=== PATIENT | male | born 2000 | race Caucasian/White ===

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

== ENCOUNTER 2021-09-25 04:28 | Observation (INO) ==
[2021-09-25] MEDS ORDERED: *HR* Dextrose 50 % in Water (Syg) 50 ML SYRINGE IVP ONE ×5 (04:40→06:47)
[2021-09-25] MEDS ORDERED: *HR* Dextrose 50 % in Water (Syg) 50 ML SYRINGE ONE ×3 (04:40→06:11)
[2021-09-25] MEDS ORDERED: Ondansetron 4 MG/2 ML VIAL ONE (04:51)
[2021-09-25] MEDS ORDERED: Ondansetron 4 MG/2 ML VIAL IVP ONE (04:55)
[2021-09-25 05:20] LABS: Basophils # 0.1 K/mcL (0.0-0.2); Basophils % 0.7 %; Eosinophils # 0.2 K/mcL (0.0-0.6); Hematocrit 49.7 % (37.5-50.1); Hemoglobin 17.3 g/dL (12.9-16.9); Immature Granulocytes % 0.3 % (0-4); Lymphocytes % 42.2 %; Mean Corpuscular HGB Conc 34.8 g/dL (31.6-35.5); Mean Corpuscular Hemoglobin 31.9 pg (28.0-33.3); Mean Corpuscular Volume 91.7 fL (83.0-100.0); Monocytes # 0.5 K/mcL (0.0-1.3); Platelet Count 417 K/mcL (140-400); Red Blood Count 5.42 M/mcL (4.19-5.50); Red Cell Distribution Width 11.9 % (11.5-14.5); Segmented Neutrophils % 50.8 %; White Blood Count 11.7 K/mcL (4.3-11.1)
[2021-09-25 05:52] LABS: Acetaminophen < 10 mcg/mL (10-20); BUN/Creatinine Ratio 7 (6-26); Blood Urea Nitrogen 6 mg/dL (6-20); Calcium 9.4 mg/dL (8.6-10.3); Carbon Dioxide 22 mEq/L (23-29); Chloride 109 mEq/L (98-107); Chol/HDL Ratio 3.7 (0-4.9); Cholesterol 173 mg/dL (< 200); Ethanol 254 mg/dL (Less than 10); Glucose 35 mg/dL (70-105); HDL Cholesterol 47 mg/dL (40-59); LDL Cholesterol,Calculated 78 mg/dL (< 100); Osmolality,Calculated 292 (280-300); Salicylate < 2.5 mg/dL (15.0-30.0); Sodium 144 mEq/L (136-145); Triglycerides 240 mg/dL (< 150)
[2021-09-25] MEDS ORDERED: D5% in 0.45% NACL 1,000 ML IVC SCH (06:30)
[2021-09-25 06:35] LABS: Estimated Average Glucose 249 mg/dl; Hemoglobin A1C 10.3 %
[2021-09-25] MEDS ORDERED: D5 IVC ONE (06:45)
[2021-09-25] MEDS ORDERED: [UNRECOGNIZED DRUG - OTHER] IVC ONE (06:45)
[2021-09-25] MEDS ORDERED: POTASSIUM CHLORIDE IVC ONE (06:45)
[2021-09-25] MEDS ORDERED: WATER IVC ONE (06:45)
[2021-09-25] MEDS ORDERED: DEXTROSE 50% IVC ONE (06:45)
[2021-09-25] MEDS ORDERED: Ondansetron 4 MG/2 ML VIAL IVP PRN (07:22)
[2021-09-25] MEDS ORDERED: Naloxone 0.4 MG/ML INJ IVP PRN (07:22)
[2021-09-25] MEDS ORDERED: *HR* HYDROcodone/Acet 5/325 mg TABLET PO PRN (07:22)
[2021-09-25] MEDS ORDERED: Dextrose Gel 15 GM/37.5 ML TUBE PO PRN ×2 (07:26)
[2021-09-25] MEDS ORDERED: D5% in Water 1,000 ML IVC PRN ×2 (07:26→23:26)
[2021-09-25] MEDS ORDERED: *HR* Dextrose 50 % in Water (Syg) 50 ML SYRINGE IVP PRN (07:26)
[2021-09-25] MEDS ORDERED: *HR* LORazepam 1 MG TABLET PO PRN ×3 (07:27→07:29)
[2021-09-25] MEDS ORDERED: D10% in Water 500 ML IVC SCH (07:30)
[2021-09-25] MEDS ORDERED: Octreotide 50 MCG/ML INJ IVP SCH (08:01)
[2021-09-25] MEDS ORDERED: Octreotide 50 MCG/ML INJ IVP ONE ×2 (08:44→13:30)
[2021-09-25] MEDS: Nicotine 14 MG PATCH.TD24 TD SCH (09:11)
[2021-09-25] MEDS: Thiamine (B-1) 100 MG TABLET PO SCH (09:11)
[2021-09-25 10:13] LABS: Bilirubin,Urine Negative (Negative); Blood,Urine Negative (Negative); Clarity,Urine Clear (Clear); Color,Urine Colorless (Yellow); Glucose,Urine (UA) >=1000 mg/dL (Normal); Ketones,Urine Negative (Negative); Leukocyte Esterase,Urine Negative (Negative); Mucus,Urine Few per lpf (None-Few); Nitrite,Urine Negative (Negative); PH,Urine 6.5 pH Units (5.0-8.0); Protein,Urine Negative (Neg-Trace); Specific Gravity,Urine 1.006 (1.010-1.025); Squamous Epithelial Cell,Urine Few per hpf (None-Few); Urobilinogen,Urine Normal (Normal); WBC,Urine 0-3 per hpf (0-3)
[2021-09-25] MEDS ORDERED: 0.9 % Sodium Chloride 1,000 ML ONE (10:54)
[2021-09-25 12:14] LABS: BUN/Creatinine Ratio 6 (6-26); Blood Urea Nitrogen 5 mg/dL (6-20); Calcium 8.8 mg/dL (8.6-10.3); Carbon Dioxide 26 mEq/L (23-29); Chloride 103 mEq/L (98-107); Glucose 276 mg/dL (70-105); Osmolality,Calculated 289 (280-300); Potassium 3.9 mEq/L (3.5-5.1); Sodium 136 mEq/L (136-145)
[2021-09-25] MEDS: Insulin LISPRO 300 UNITS/3 ML VIAL SUBQ SCH (23:56)
[2021-09-26] MEDS ORDERED: Insulin LISPRO 300 UNITS/3 ML VIAL SUBQ SCH (07:30)
[2021-09-26] MEDS: Nicotine 14 MG PATCH.TD24 TD SCH (08:43)
[2021-09-26] MEDS: Thiamine (B-1) 100 MG TABLET PO SCH (08:44)
[2021-09-26] MEDS: Insulin LISPRO 300 UNITS/3 ML VIAL SUBQ SCH ×4 (08:45→21:14)
[2021-09-26] MEDS ORDERED: Insulin DETEMIR 100 UNIT/ML X5UNITS SUBQ SCH ×3 (09:00→21:00)
[2021-09-26 09:22] LABS: Basophils # 0.1 K/mcL (0.0-0.2); Basophils % 0.8 %; Eosinophils # 0.3 K/mcL (0.0-0.6); Eosinophils % 3.1 %; Hematocrit 43.5 % (37.5-50.1); Immature Granulocytes % 0.3 % (0-4); Lymphocytes % 41.4 %; Mean Corpuscular HGB Conc 34.3 g/dL (31.6-35.5); Mean Corpuscular Hemoglobin 31.6 pg (28.0-33.3); Mean Corpuscular Volume 92.2 fL (83.0-100.0); Mean Platelet Volume 10.3 fL (9.4-12.4); Monocytes # 0.5 K/mcL (0.0-1.3); Monocytes % 4.9 %; Neutrophils # 4.8 K/mcL (1.6-8.9); Platelet Count 272 K/mcL (140-400); Red Blood Count 4.72 M/mcL (4.19-5.50); Red Cell Distribution Width 11.8 % (11.5-14.5); Segmented Neutrophils % 49.5 %; White Blood Count 9.7 K/mcL (4.3-11.1)
[2021-09-26 09:24] LABS: Hemoglobin 14.9 g/dL (12.9-16.9)
[2021-09-26 09:37] LABS: BUN/Creatinine Ratio 14 (6-26); Blood Urea Nitrogen 13 mg/dL (6-20); Calcium 8.8 mg/dL (8.6-10.3); Carbon Dioxide 28 mEq/L (23-29); Chloride 104 mEq/L (98-107); Glucose 233 mg/dL (70-105); Magnesium 1.9 mg/dL (1.6-2.6); Osmolality,Calculated 292 (280-300); Phosphorous 5.3 mg/dL (2.7-4.5); Sodium 137 mEq/L (136-145)
[2021-09-26 10:38] LABS: Amphetamine Screen,Urine Negative ng/mL (Cutoff=1000); Barbiturate Screen,Urine Negative ng/mL (Cutoff=200); Benzodiazepines Screen,Urine Negative ng/mL (Cutoff=200); Cannabinoid Screen,Urine Positive ng/mL (Cutoff = 50); Cocaine Screen,Urine Negative ng/mL (Cutoff= 300); Opiate Screen,Urine Negative ng/mL (Cutoff=300); Phencyclidine Screen,Urine Negative ng/mL (Cutoff=25)
[2021-09-26 23:03] VITALS: O2SAT 99
[2021-09-27 01:37] LABS: Basophils # 0.1 K/mcL (0.0-0.2); Basophils % 0.7 %; Eosinophils # 0.3 K/mcL (0.0-0.6); Eosinophils % 2.6 %; Hematocrit 42.8 % (37.5-50.1); Hemoglobin 14.6 g/dL (12.9-16.9); Immature Granulocytes % 0.3 % (0-4); Lymphocytes # 3.6 K/mcL (0.6-4.6); Lymphocytes % 31.9 %; Mean Corpuscular HGB Conc 34.1 g/dL (31.6-35.5); Mean Corpuscular Hemoglobin 31.3 pg (28.0-33.3); Mean Corpuscular Volume 91.6 fL (83.0-100.0); Mean Platelet Volume 10.1 fL (9.4-12.4); Monocytes # 0.6 K/mcL (0.0-1.3); Monocytes % 4.9 %; Neutrophils # 6.8 K/mcL (1.6-8.9); Platelet Count 264 K/mcL (140-400); Red Blood Count 4.67 M/mcL (4.19-5.50); Red Cell Distribution Width 11.7 % (11.5-14.5); Segmented Neutrophils % 59.6 %; White Blood Count 11.4 K/mcL (4.3-11.1)
[2021-09-27 01:57] LABS: BUN/Creatinine Ratio 19 (6-26); Blood Urea Nitrogen 17 mg/dL (6-20); Calcium 8.6 mg/dL (8.6-10.3); Carbon Dioxide 26 mEq/L (23-29); Chloride 105 mEq/L (98-107); Glucose 212 mg/dL (70-105); Osmolality,Calculated 292 (280-300); Potassium 3.6 mEq/L (3.5-5.1); Sodium 137 mEq/L (136-145)
[2021-09-27 07:34] VITALS: BP 135/67; TEMP 98.2
[2021-09-27] MEDS ORDERED: Insulin DETEMIR 100 UNIT/ML X5UNITS SUBQ SCH (09:00)
[2021-09-27] MEDS: Thiamine (B-1) 100 MG TABLET PO SCH (09:21)
[2021-09-27] MEDS: Nicotine 14 MG PATCH.TD24 TD SCH (09:21)
[2021-09-27 09:30] VITALS: PULSE 59
[2021-09-27] MEDS ORDERED: Insulin LISPRO 300 UNITS/3 ML VIAL SUBQ SCH ×2 (11:30→21:00)
== END 2021-09-27 10:23 ==
LOC: EMEROOARM 04:28 → 2NNU 04:28 → SUATTDRO 07:18 → 2NNU 07:45
PROVIDERS: ADMIT Internal Medicine; ATTEND Internal Medicine

== ENCOUNTER 2021-09-27 10:26 | Inpatient (IN) ==
[2021-09-27] MEDS ORDERED: *HR* LORazepam 1 MG TABLET PO PRN (11:09)
[2021-09-27] MEDS ORDERED: Mag Hydrox/Al Hydrox/Simeth 30 ML UDC PO PRN (11:09)
[2021-09-27] MEDS ORDERED: Haloperidol Lactate 5 MG/ML VIAL IM PRN (11:09)
[2021-09-27] MEDS ORDERED: hydrOXYzine pamoate 25 MG CAPSULE PO PRN (11:09)
[2021-09-27] MEDS ORDERED: *HR* LORazepam 2 MG/ML VIAL IM PRN (11:09)
[2021-09-27] MEDS ORDERED: haloperidoL 5 MG TABLET PO PRN (11:09)
[2021-09-27] MEDS ORDERED: MOM Conc 10 ML UD.LIQ PO PRN (11:09)
[2021-09-27] MEDS ORDERED: Dextrose Gel 15 GM/37.5 ML TUBE PO PRN ×2 (12:18)
[2021-09-27] MEDS: Insulin LISPRO 300 UNITS/3 ML VIAL SUBQ SCH ×2 (12:46→16:45)
[2021-09-27] MEDS: Nicotine 2 MG GUM BC PRN ×3 (12:52→20:50)
[2021-09-27] MEDS: Sulfamethoxazole/Trimeth DS 1 EACH TABLET PO SCH (20:51)
[2021-09-27] MEDS ORDERED: Insulin DETEMIR 100 UNIT/ML X5UNITS SUBQ SCH (21:00)
[2021-09-27] MEDS: Acetaminophen 325 MG TABLET PO PRN (22:37)
[2021-09-28] MEDS: Ibuprofen 800 MG TABLET PO PRN ×3 (04:11→18:45)
[2021-09-28] MEDS: Thiamine (B-1) 100 MG TABLET PO SCH (08:18)
[2021-09-28] MEDS: Sulfamethoxazole/Trimeth DS 1 EACH TABLET PO SCH ×2 (08:19→21:45)
[2021-09-28] MEDS: Folic Acid 1 MG TABLET PO SCH (08:19)
[2021-09-28] MEDS: Insulin LISPRO 300 UNITS/3 ML VIAL SUBQ SCH ×3 (08:21→16:45)
[2021-09-28] MEDS: Nicotine 2 MG GUM BC PRN ×2 (08:42→14:15)
[2021-09-28] MEDS: Insulin DETEMIR 100 UNIT/ML X5UNITS SUBQ SCH (08:43)
[2021-09-28] MEDS: traZODone 50 MG TABLET PO PRN (21:46)
[2021-09-28] MEDS: Acetaminophen 325 MG TABLET PO PRN (21:46)
[2021-09-29] MEDS: Ibuprofen 800 MG TABLET PO PRN ×3 (00:33→14:06)
[2021-09-29] MEDS: traZODone 50 MG TABLET PO PRN (01:28)
[2021-09-29] MEDS ORDERED: *HR* HYDROcodone/Acet 5/325 mg TABLET PO ONE (02:09)
[2021-09-29] MEDS: Folic Acid 1 MG TABLET PO SCH (07:53)
[2021-09-29] MEDS: Thiamine (B-1) 100 MG TABLET PO SCH (07:53)
[2021-09-29] MEDS: Sulfamethoxazole/Trimeth DS 1 EACH TABLET PO SCH (07:53)
[2021-09-29] MEDS: Insulin LISPRO 300 UNITS/3 ML VIAL SUBQ SCH ×2 (07:55→11:54)
[2021-09-29] MEDS: Insulin DETEMIR 100 UNIT/ML X5UNITS SUBQ SCH (07:55)
[2021-09-29] MEDS: Nicotine 2 MG GUM BC PRN (08:33)
[2021-09-29 12:47] VITALS: BP 144/71; PULSE 85; TEMP 97.5; O2SAT 98
== END 2021-09-29 15:02 | disposition home or self-care (01) | DRG 751 ==
LOC: 1ANU 10:26
PROVIDERS: ADMIT Psychiatry & Neurology Psychiatry; ATTEND Psychiatry & Neurology Psychiatry